=== PATIENT | female | born 1930 | race Caucasian/White ===

== ENCOUNTER → 2016-09-12 | Outpatient (REF) | payer MEDICARE, BC ==
[~2016-09-12] MED LIST: /RANI15TA OR; ACET-654 PO; ATEN25TA PO; BENZ200C PO; BETO0.25 OU; CARV6.25 PO; COLA100C3 PO; LASI40TA PO; MILKSUS PO; MIRA3350 PO; NORCOTAB PO; PROT1TAB2 PO; SENN8.6T7 PO; SENO8.6T2 PO; TYLE325T5 PO; VALS1TAB49 PO; VITA100041 PO; WARF-20 PO; WARF-58 PO; WARF4TAB28 PO; [UNRECOGNIZED DRUG - CODE] PO; [UNRECOGNIZED DRUG - OTHER] OD; lumigan OU
== END ==
LOC: M LAB REF 17:27
PROVIDERS: ATTEND Internal Medicine
DX: D01.0 Carcinoma in situ of colon (principal)

== ENCOUNTER → 2017-04-17 | Outpatient (REF) | payer MEDICARE, BC ==
[~2017-04-17] MED LIST changes: -ACET-654 PO; +ACET1TAB17 PO; -COLA100C3 PO; +COLA100C5 PO; +COUM6TAB PO; +D32000CA PO; -SENO8.6T2 PO; +SENO8.6T5 PO; +VITA-182 PO; +VITA100067 PO; -[UNRECOGNIZED DRUG - CODE] PO
== END ==
LOC: M LAB REF 16:47
PROVIDERS: ATTEND Nurse Practitioner Adult Health
DX: R31.0 Gross hematuria (principal)

== ENCOUNTER → 2017-08-19 | Outpatient (REF) | payer MEDICARE, BC | LOC: M LAB REF 16:33 | DX: R31.9 Hematuria, unspecified (principal) | CPT/HCPCS: 87086 ==

== ENCOUNTER → 2017-12-10 | Outpatient (REF) | payer MEDICARE, BC ==
[2017-12-14 14:19] LABS: HEPATITIS C QUANTITATION 99350 IU/mL (.)
== END ==
LOC: M LAB REF 12:07
DX: B18.2 Chronic viral hepatitis C (principal)
CPT/HCPCS: 87522

== ENCOUNTER → 2018-03-10 | Outpatient (REF) | payer MEDICARE, BC | LOC: M LAB REF 17:12 | DX: R31.9 Hematuria, unspecified (principal) | CPT/HCPCS: 88108 ==

== ENCOUNTER → 2018-03-17 | Outpatient (REF) | payer MEDICARE, BC | LOC: M LAB REF 13:03 | DX: R31.9 Hematuria, unspecified (principal) | CPT/HCPCS: 88108 ==

== ENCOUNTER → 2018-03-24 | Outpatient (REF) | payer MEDICARE, BC | LOC: M LAB REF 10:07 | DX: R31.9 Hematuria, unspecified (principal) | CPT/HCPCS: 88108 ==

== ENCOUNTER → 2018-04-07 | Outpatient (REF) | payer MEDICARE, BC ==
[~2018-04-07] MED LIST changes: -ACET1TAB17 PO; +ACET1TAB55 PO; -LASI40TA PO; +LASI40TA9 PO; +MILK120011 PO; -MILKSUS PO
[2018-04-07 14:21] LABS: APPEARANCE, URINE CLEAR (CLEAR); BACTERIA, URINE AUTO NEGATIVE (NEGATIVE); BILIRUBIN, URINE AUTO NEGATIVE (NEGATIVE); BLOOD, URINE BLOOD 3+ (NEGATIVE); COLOR, URINE YELLOW (YELLOW); GLUCOSE, URINE (UA) AUTO NEGATIVE (NEGATIVE); KETONE, URINE AUTO NEGATIVE (NEGATIVE); LEUKOCYTE ESTERASE, URINE AUTO 1+ (NEGATIVE); MUCUS, URINE SMALL (NEGATIVE); NITRITE, URINE AUTO NEGATIVE (NEGATIVE); PROTEIN, URINE AUTO 2+ mg/dL (NEGATIVE); RBC, URINE AUTO 150 /HPF (0-3); SPECIFIC GRAVITY URINE AUTO 1.019 (1.002-1.035); SQUAMOUS EPITHELIAL CELL UR AU 0 /HPF (0-6); WBC, URINE AUTO 32 /HPF (0-3)
== END ==
LOC: M SMT 13:19
PROVIDERS: ATTEND Nurse Practitioner Women's Health
DX: R31.0 Gross hematuria (principal)
CPT/HCPCS: 81001; 87086; 88108; G0463

== ENCOUNTER → 2018-04-16 | Outpatient (CLI) | payer MEDICARE, BC ==
[~2018-04-16] MED LIST changes: +ISOVUE-370 76% 100ML VIAL (Q9967) As Ordered ONE
--- NOTE | 2018-04-16 17:23 | REP ---
Clinical: Gross hematuria. Technique: Axial precontrast, contrast enhanced, and delayed images of the abdomen and pelvis using 100 ml Isovue 370 intravenous contrast material with coronal and sagittal re-formations. Findings: A 9 mm obstructing calculus in the left ureteropelvic junction (images [id number]) is identified along with 1.1 cm simple appearing left peripelvic cyst and 1.4 cm simple appearing right posterior cortical cyst. No perinephric stranding. Kidneys demonstrate symmetric enhancement. Small scattered hepatic hypodensities consistent with benign hepatic cysts. Spleen, pancreas, and bilateral adrenal glands are normal. Gallbladder appears distended without obvious biliary ductal dilatation. The enteric system demonstrates presumed moderate fecal stasis without obstruction or obvious acute inflammatory process. Pelvis demonstrates normal bladder and age-appropriate uterus/adnexa. No ascites. No free air. No significant adenopathy. Atherosclerotic changes to the abdominal aorta and vasculature without aneurysm or dissection. Musculoskeletal structures demonstrate degenerative change. Lung bases demonstrate chronic COPD and emphysematous changes with scattered scarring and mild prominence to the descending thoracic aorta measuring 3.4 cm maximal diameter. Impression: 1. 9 mm calculus in the left ureteropelvic junction along with small solitary bilateral renal cysts. No significant hydronephrosis. 2. Few scattered hepatic cysts. 3. Distended gallbladder. 4. Moderate fecal stasis. 5. Mildly prominent descending thoracic aorta measures 3.4 cm maximal diameter. Electronically Signed by Rober Malone MD 04/16/2018 05:15 P
== END ==
LOC: M RAD 16:32
PROVIDERS: ATTEND Nurse Practitioner Women's Health
DX: R31.0 Gross hematuria (principal); N20.1 Calculus of ureter; N28.1 Cyst of kidney, acquired; K76.89 Other specified diseases of liver; K82.8 Other specified diseases of gallbladder; J44.9 Chronic obstructive pulmonary disease, unspecified
CPT/HCPCS: 74178; Q9967

== ENCOUNTER → 2018-05-07 | Outpatient (CLI) | payer MEDICARE, BC ==
[~2018-05-07] MED LIST changes: -ISOVUE-370 76% 100ML VIAL (Q9967) As Ordered ONE
[2018-05-07 09:40] LABS: HEMATOCRIT 33.8 % (36.0-47.0); MEAN CORPUSCULAR HEMOGLOBIN 32.8 pg (27.0-33.0); MEAN CORPUSCULAR HGB CONC 32.5 g/dl (32.0-36.5); MEAN CORPUSCULAR VOLUME 100.9 fl (80.0-96.0); RED BLOOD COUNT 3.35 10^6/uL (4.00-5.40); WHITE BLOOD COUNT 4.2 10^3/uL (4.0-10.0)
[2018-05-07 09:55] LABS: INR 1.57; PROTHROMBIN TIME 19.1 SECONDS (12.1-14.4)
[2018-05-07 09:56] LABS: PARTIAL THROMBOPLASTIN TIME 33.8 SECONDS (25.4-37.6)
--- NOTE | 2018-05-07 10:03 | REP ---
Chest two views HISTORY: Preop Comparison: 05/20/2015 The lungs are clear. There is blunting of the right costophrenic angle due to pleural thickening or a small pleural effusion. The cardiac silhouette is enlarged. The pulmonary vasculature is normal in appearance. The bony structure is intact. A cardiac pacemaker is present. IMPRESSION: 1. There is blunting of the right costophrenic angle due to pleural thickening or small pleural effusion. 2. Cardiomegaly. Electronically Signed by Stephan Glynn MD 05/07/2018 09:55 A
[2018-05-07 10:05] LABS: CALCIUM LEVEL 9.1 MG/DL (8.8-10.2); CREATININE FOR GFR 1.06 MG/DL (0.55-1.30); GLOMERULAR FILTRATION RATE 52.2 (>32); POTASSIUM SERUM 4.4 MEQ/L (3.5-5.1)
[2018-05-07 10:23] LABS: PLATELET COUNT, AUTOMATED 59 10^3/uL (150-450)
--- NOTE | 2018-05-07 22:03 | ECGEPIP ---
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
== END ==
LOC: M LAB 08:40
PROVIDERS: ATTEND Nurse Practitioner Women's Health
DX: Z01.818 Encounter for other preprocedural examination (principal); N20.0 Calculus of kidney

== ENCOUNTER 2018-05-27 08:23 | Day surgery (SDC) | payer MEDICARE, BC ==
[~2018-05-27] VITALS: Ht 162.6 cm; Wt 54.0 kg
[~2018-05-27 08:23] MED LIST changes: +LIDOCAINE 1% MDV 20ML VIAL SQ PRN; +LOSA50TA88 PO; +LR 1,000 ML IV ONE
--- NOTE | 2018-05-27 08:25 | REP ---
Clinical: Nephrolithiasis. Technique: Single supine view of the abdomen and pelvis. Findings: 7 mm calculus presumed to be within the lower pole left kidney. Further evaluation of the urinary tract system is limited. Bowel gas pattern is nonspecific. Skeletal structures demonstrate chronic levoconvex scoliosis, osteopenia and degenerative changes. Impression: 1. Suspected 7 mm nonobstructing calculus in the lower pole left kidney. Electronically Signed by Rober Malone MD 05/27/2018 08:16 A
[2018-05-27] MEDS ORDERED: MIDAZOLAM INJ 2 MG/2 ML VIAL (J2250) As Ordered ONE (09:50)
[2018-05-27] MEDS ORDERED: LIDOCAINE 2% INJ 100 MG/5 ML SDV (FOR ANES.) As Ordered ONE (09:50)
[2018-05-27] MEDS ORDERED: PROPOFOL 200 MG/20 ML VIAL As Ordered ONE (09:50)
[2018-05-27] MEDS ORDERED: fentaNYL 100 MCG/2 ML INJECTION (J3010) As Ordered ONE (09:50)
[2018-05-27 09:51] LABS: INR 1.28; PROTHROMBIN TIME 16.2 SECONDS (12.1-14.4)
[2018-05-27] MEDS ORDERED: oxyCODONE 5MG TAB PO PRN (11:15)
[2018-05-27] MEDS ORDERED: ACETAMINOPHEN 325 MG TAB PO PRN (11:15)
[2018-05-27 12:15] VITALS: BP 158/72
--- NOTE | 2018-05-27 12:31 | RO ---
DATE OF PROCEDURE: 05/27/2018 PREPROCEDURE DIAGNOSIS: Left kidney stone. POSTPROCEDURE DIAGNOSIS: Left kidney stone. PROCEDURE: Left extracorporal shockwave lithotripsy. SURGEON: Dr. Tavo Richards. ORTHOPEDIC NURSE: None. ANESTHESIA: Monitored anesthesia care (MAC). OPERATIVE INDICATION: This is an 87-year-old female who was found to have an 8- 9 mm left ureteropelvic junction stone on recent imaging. She was brought to the operating room today for the above listed procedure. DESCRIPTION OF PROCEDURE: The patient was brought to the operating room and MAC anesthesia was administered. Prophylactic antibiotics were infused. She was then placed in supine position in preparation for left-sided extracorporal shockwave lithotripsy. Fluoroscopy was utilized to monitor stone position and fragmentation throughout the procedure. Shockwaves were delivered to the left-sided kidney stone ungated. There were no arrhythmias. After 2500 shocks the procedure was concluded. The patient was then awakened from anesthesia and transported to the recovery room in stable condition. ESTIMATED BLOOD LOSS: 0 mL COMPLICATIONS: None. SPECIMENS: None. PLAN: Patient will followup in the clinic in approximately 4 weeks with imaging prior to test for residual stone burden. KISHA
== END 2018-05-27 12:35 | disposition home or self-care (01) ==
LOC: M SDC 08:23
PROVIDERS: ATTEND Urology
DX: N20.0 Calculus of kidney (principal); I48.2 Chronic atrial fibrillation; I13.0 Hypertensive heart and chronic kidney disease with heart failure and stage 1 through stage 4 chronic kidney disease, or unspecified chronic kidney disease; I50.42 Chronic combined systolic (congestive) and diastolic (congestive) heart failure; N18.3 Chronic kidney disease, stage 3 (moderate); D63.1 Anemia in chronic kidney disease; D69.6 Thrombocytopenia, unspecified; R07.9 Chest pain, unspecified; I25.2 Old myocardial infarction; M12.9 Arthropathy, unspecified; M91.0 Juvenile osteochondrosis of pelvis; F41.9 Anxiety disorder, unspecified; K59.00 Constipation, unspecified; Z88.2 Allergy status to sulfonamides; Z88.5 Allergy status to narcotic agent; Z88.8 Allergy status to other drugs, medicaments and biological substances; Z79.899 Other long term (current) drug therapy; Z79.01 Long term (current) use of anticoagulants; Z95.0 Presence of cardiac pacemaker; Z86.19 Personal history of other infectious and parasitic diseases; Z96.653 Presence of artificial knee joint, bilateral; Z98.41 Cataract extraction status, right eye; Z98.42 Cataract extraction status, left eye; Z96.1 Presence of intraocular lens
CPT/HCPCS: 50590; 74018; 85610; J0690; J2250; J3010

== ENCOUNTER → 2018-06-16 | Outpatient (CLI) | payer MEDICARE, BC ==
[~2018-06-16] MED LIST changes: -LIDOCAINE 1% MDV 20ML VIAL SQ PRN; -LR 1,000 ML IV ONE
--- NOTE | 2018-06-16 09:53 | REP ---
KUB one-view History: Left kidney stone Comparison: 05/27/2018 Air is present in small and large intestine. There are no air-fluid levels or dilated loops of intestine. There is no pneumoperitoneum. There is no definite nephrocalcinosis. Degenerative change is present in the lumbar spine. Impression: 1. Nonspecific bowel gas pattern. 2. There is no definite nephrocalcinosis. Electronically Signed by Stephan Glynn MD 06/16/2018 09:44 A
[2018-06-16 14:16] LABS: APPEARANCE, URINE CLEAR (CLEAR); BACTERIA, URINE AUTO NEGATIVE (NEGATIVE); BILIRUBIN, URINE AUTO NEGATIVE (NEGATIVE); BLOOD, URINE BLOOD NEGATIVE (NEGATIVE); COLOR, URINE YELLOW (YELLOW); GLUCOSE, URINE (UA) AUTO NEGATIVE (NEGATIVE); KETONE, URINE AUTO NEGATIVE (NEGATIVE); LEUKOCYTE ESTERASE, URINE AUTO TRACE (NEGATIVE); NITRITE, URINE AUTO NEGATIVE (NEGATIVE); PROTEIN, URINE AUTO NEGATIVE (NEGATIVE); RBC, URINE AUTO 2 /HPF (0-3); SPECIFIC GRAVITY URINE AUTO 1.016 (1.002-1.035); SQUAMOUS EPITHELIAL CELL UR AU 0 /HPF (0-6); WBC, URINE AUTO 3 /HPF (0-3)
== END ==
LOC: M SMT 08:15
PROVIDERS: ATTEND Nurse Practitioner Women's Health
DX: M51.36 Other intervertebral disc degeneration, lumbar region (principal); N20.0 Calculus of kidney

== ENCOUNTER 2019-05-14 23:05 | Observation (INO) | payer MEDICARE, BC ==
[~2019-05-14] VITALS: Ht 162.6 cm; Wt 43.8 kg
[~2019-05-14 23:05] MED LIST changes: -/RANI15TA OR; +HYDR-3715 PO; -NORCOTAB PO; +RANI1TAB17 OR; -VALS1TAB49 PO; +VALS40TA9 PO
[2019-05-15] MEDS ORDERED: BENZONATATE 100 MG CAP PO ONE
[2019-05-15] MEDS ORDERED: IPRATROPIUM 0.5MG/ALBUTEROL 2.5MG INH SOL UD 3ML (DUONEB)(J7620) NEB ONE
[2019-05-15 00:19] LABS: INFLUENZA A AMPLIFICATION NEGATIVE (NEGATIVE); INFLUENZA B AMPLIFICATION NEGATIVE (NEGATIVE)
[2019-05-15 00:41] LABS: BASO % 0.4 % (0.0-1.0); EOS % 0.2 % (0.0-3.0); HEMATOCRIT 35.2 % (36.0-47.0); HEMOGLOBIN 11.2 g/dl (12.0-15.5); LYMPH # 0.7 10^3/uL (1.5-5.0); LYMPH % 13.3 % (24.0-44.0); MEAN CORPUSCULAR HGB CONC 31.8 g/dl (32.0-36.5); MEAN CORPUSCULAR VOLUME 103.8 fl (80.0-96.0); MONO # 0.3 10^3/uL (0.0-0.8); MONO % 5.8 % (0.0-5.0); NEUTROPHILS % 79.9 % (36.0-66.0); RED BLOOD COUNT 3.39 10^6/uL (4.00-5.40)
[2019-05-15 01:00] LABS: CK-MB VALUE MASS < 1.0 NG/ML (<3.6); CPK CREATINE PHOSPHOKINASE 78 U/L (26-192); MB/CK RELATIVE INDEX 1.28 (< OR =4); TROPONIN I < 0.02 NG/ML (< 0.10)
[2019-05-15] MEDS ORDERED: ACETAMINOPHEN 500 MG TAB PO ONE (01:30)
[2019-05-15 01:39] LABS: PLATELET COUNT, AUTOMATED 50 10^3/uL (150-450)
[2019-05-15 01:40] LABS: ERYTHROCYTE SEDIMENTATION RATE 22 mm/hr (0-30)
[2019-05-15 01:48] LABS: APPEARANCE, URINE CLEAR (CLEAR); BACTERIA, URINE AUTO NEGATIVE (NEGATIVE); BILIRUBIN, URINE AUTO NEGATIVE (NEGATIVE); BLOOD, URINE BLOOD 1+ (NEGATIVE); COLOR, URINE YELLOW (YELLOW); GLUCOSE, URINE (UA) AUTO NEGATIVE (NEGATIVE); KETONE, URINE AUTO NEGATIVE (NEGATIVE); LEUKOCYTE ESTERASE, URINE AUTO NEGATIVE (NEGATIVE); MUCUS, URINE SMALL (NEGATIVE); NITRITE, URINE AUTO NEGATIVE (NEGATIVE); PROTEIN, URINE AUTO 1+ mg/dL (NEGATIVE); RBC, URINE AUTO 17 /HPF (0-3); SPECIFIC GRAVITY URINE AUTO 1.018 (1.002-1.035); SQUAMOUS EPITHELIAL CELL UR AU 0 /HPF (0-6); UROBILINOGEN, URINE AUTO 0.2 mg/dL (0.0-2.0); WBC, URINE AUTO 1 /HPF (0-3)
[2019-05-15 01:55] LABS: NT-PRO BNP 6595 PG/ML (<450)
[2019-05-15 03:30] LABS: INR 2.23; PROTHROMBIN TIME 24.5 SECONDS (11.8-14.0)
[2019-05-15] MEDS ORDERED: D3 22000 PO (03:30)
[2019-05-15] MEDS ORDERED: ATEN50TA2 PO (03:30)
[2019-05-15] MEDS ORDERED: PILL CUTTER 1 EACH XX PRN (03:45)
[2019-05-15 04:05] VITALS: BP 134/58
--- NOTE | 2019-05-15 04:07 | HPEPDOC ---
[facility] Medical History & Physical Date of Admission May 15, 2019 Date of Service: May 15, 2019 History and Physical CHIEF COMPLAINT: Not feeling well HISTORY OF PRESENT ILLNESS: This is a 88-year-old female presented today for rigor for 1 day. She is a good historian. She states when she was out doing errands earlier this afternoon (around 3:30pm) she began not to feel well so she went home. At home, she began to experience chills and rigor. She notes that she was unable to get warm even though she tired everything. She attempted to eat a meal but noticed nausea but no vomiting after attempting to have some soup She state she was only able to tolerate a bland toast with butter with no problem. She denied any fevers at home, night sweats, weight loss, hair loss, headache, visual changes, chest pain, shortness of breath, vomiting, diarrhea, abdominal pain, muscle aches, worsening arthritis, or change in mood. She does endorse rhinorrhea and a possible dry cough for the last 2 days. She denies any recent sick contact and because symptoms were not improving she called her daughter, who brought her to the ER for further evaluation. In the ER her vitals showed a fever of 101.3 and a tachycardic rate. Telemetry showed she was in atrial fibrillation and RVR. Physical exam was positive for crackles in the right lung base and chest x-ray showed slight blunting of the right costophrenic angle. Because of the elevated proBNP and the continued fever hospitalist team was then called for admission PAST MEDICAL HISTORY: 1. Atrial fibrillation on anticoagulation 2. Congestive heart failure with preserved ejection fraction 3. Hepatitis C (report secondary to transfusion to [facility] in 1966 after giving to her daughter.) 4. History of cataracts. 5. Thrombocytopenia 6. History of aortic aneurysm 7. Arthritis 8. Status post removal of 2 ribs on the right side (in [place]) HOME MEDICATIONS: Please see below. ALLERGIES: Please see below PAST SURGICAL HISTORY: 1. Bilateral cataract surgery 2. Left knee arthroplasty. 3. Pacemaker placement in 2010 4. Thoracic aneurysm repair 2015 at [facility] with Dr. Fink SOCIAL HISTORY: Lives : Alone, lives independently in [facility] [address], Tobacco use: Denies. ETOH: Rarely, Illicit drug use: Denies, CODE STATUS: DNR/DNI FAMILY HISTORY:Reviewed and noncontributory REVIEW OF SYSTEMS: 10 systems reviewed and negative other than HPI PHYSICAL EXAMINATION: VITAL SIGNS: See below GENERAL: Pleasant 88-year-old female laying in bed awake alert oriented speaking in complete sentences no acute distress HEENT: Atraumatic, normocephalic, bilateral temporal wasting, upper dentures missing, Moist mucous membranes with no JVD, prominent SCM muscles and clavicular head bilaterally. CARDIOVASCULAR: S1-S2, irregularly irregular tachycardic rate at 120 with a systolic murmur at the left 5th intercostal space but no radiation, no rubs or gallops. RESPIRATORY: Clear to auscultation bilaterally, except crackles at the right lung base ABDOMINAL: Bowel sounds present abdomen soft and nontender EXTREMITIES: No clubbing cyanosis 1+ pitting edema bilaterally of the ankles. NEUROLOGICAL: no gross focal deficits appreciated PSYCHOLOGICAL: Appropriate LABORATORY DATA: See below. MICROBIOLOGY: Please see below. IMAGIN05/14/2019 Chest x-ray - official report currently pending. Median sternotomy wires, with left pacemaker in place. Note blunting of the costophrenic angle on the right which is similar to CXR from April 2018. Cardiomegaly. ASSESSMENT & PLAN: This is a 88-year-old female presented for rigor for 1 day. PROBLEMS: 1. Rigor and Fevers - possibly viral URI, possibly 2/2 bacterial, less likely 2/2 CHF exacerbation -In the ER Tmax 101.3, saturating appropriately on room air WITH positive crackles of the right lower base. Chest x-ray shows slight blunting of the right costophrenic angle, which is not new. UA negative, ProBNP elevated at 6595 -Last echocardiogram was in 2014. Left ventricular hypertrophy with preserved systolic function, ejection fraction 60%. -Respiratory panel pending - Ordered CT of the chest to assess his pleural effusion versus consolidation -Can consider repeat echocardiogram pending results of CT chest - [id number], - Will start antibiotics if CT scan findings show evidence of pneumonia, Pro- calcitonin ordered, well continue supportive therapy, 2. Atrial fibrillation w/ RVR possibly exacerbated by problem 1 -EKG in the ER shows atrial fibrillation with RVR -[id number]: 4 -Check INR to make sure therapeutic -Continue with home atenolol 25 mg twice a day and warfarin -Remote Telemetry 3. Chronic Congestive heart failure, suspected diastolic - Last echocardiogram was in 2014. Left ventricular hypertrophy with preserved systolic function, ejection fraction 60% -Continue with home atenolol and Lasix 4. Thrombocytopenia. - Platelets 50 - Stable 5. History of hepatitis C 6. Underweight /malnourished - BMI 19.6 -supplement with ensure enlive DVT PROPHYLAXIS: -Warfarin DISPOSITION: Will place on observation status to [facility] with telemetry. Vital Signs Vital Signs Date Time Temp Pulse Resp B/P (MAP) Pulse Ox O2 Delivery O2 Flow Rate FiO2 05/15/19 03:48 99.7 05/15/19 03:35 88 14 94 Room Air 05/15/19 03:30 119/60 (79) Laboratory Data Labs 24H Laboratory Tests 2 05/14/19 23:17: Influenza Type A (RT-PCR) NEGATIVE, Influenza Type B (RT-PCR) NEGATIVE 05/15/19 00:13: Prothrombin Time 24.5H, Prothromb Time International Ratio 2.23, Lactic Acid Level 1.4 05/15/19 00:14: Immature Granulocyte % (Auto) 0.4, Neutrophils (%) (Auto) 79.9H, Lymphocytes (%) (Auto) 13.3L, Monocytes (%) (Auto) 5.8H, Eosinophils (%) (Auto) 0.2, Basophils (%) (Auto) 0.4, Neutrophils # (Auto) 4.0, Lymphocytes # (Auto) 0.7L, Monocytes # (Auto) 0.3, Eosinophils # (Auto) 0.0, Basophils # (Auto) 0.0, Nucleated Red Blood Cells % (auto) 0.0, Immature Platelet Fraction 5.2, Erythrocyte Sedimentation Rate 22, Total Creatine Kinase 78, Creatine Kinase MB < 1.0, Creatine Kinase MB Relative Index 1.28, Troponin I < 0.02, C-Reactive Protein, Quantitative 0.30, ZV-[id number]-L-Type Natriuretic Peptide 6595H 05/15/19 00:19: POC Glucose (Misc Panel) 131H, POC Sodium (Misc Panel) 138, POC Potassium (Misc Panel) 4.3, POC Chloride (Misc Panel) 100, POC Total CO2 (Misc Panel) 27.0, POC Blood Urea Nitrogen (Misc Panel 24, POC Ionized Calcium (Misc Panel) 4.7, POC Creatinine (Misc Panel) 1.1, POC Hematocrit (Misc Panel) 36.0L 05/15/19 01:28: Urine Color YELLOW, Urine Appearance CLEAR, Urine pH 7.0, Urine Specific [place] 1.018, Urine Protein 1+H, Urine Glucose (Auto)(UA) NEGATIVE, Urine Ketones (Auto) NEGATIVE, Urine Blood 1+H, Urine Nitrite NEGATIVE, Urine Bilirubin NEGATIVE, Urine Urobilinogen 0.2, Urine Leukocyte Esterase (Auto) NEGATIVE, Urine WBC (Auto) 1, Urine RBC (Auto) 17H, Urine Hyaline Casts (Auto) 0, Urine Bacteria (Auto) NEGATIVE, Urine Squamous Epithelial Cells 0, Urine Mucus (Auto) SMALL, Urine Sperm (Auto) CBC/BMP Laboratory Tests 05/15/19 00:14 Microbiology Microbiology 05/15/19 Blood Culture, Received Pending 05/15/19 Blood Culture, Received Pending 05/14/19 Respiratory Virus Panel (PCR) ([facility]) - Final, Complete Respiratory Syncytial Virus Home Medications Scheduled Atenolol (Atenolol) 50 Mg Tablet, 50 MG PO BID Cholecalciferol (Vitamin D3) (Vitamin D3) 2,000 Unit Tablet, 2,000 UNIT PO DAILY TAKES AT NOON WITH LOSARTAN Furosemide (Lasix) 40 Mg Tab, 40 MG PO DAILY Losartan Potassium (Losartan Potassium) 50 Mg Tab, 50 MG PO DAILY TAKES AT NOON Warfarin Sodium (Warfarin Sodium) 3 Mg Tab, 3 MG PO 1XWK TAKES ON THURSDAY Warfarin Sodium (Warfarin Sodium) 3 Mg Tab, 4.5 MG PO 6XWK THURSDAY, THURSDAY, THURSDAY, THURSDAY, THURSDAY AND THURSDAY Scheduled PRN Acetaminophen (Acetaminophen) 325 Mg Tab, 650 MG PO Q4HP PRN for PAIN / FEVER Allergies Coded Allergies: Sulfa (Sulfonamide Antibiotics) (Verified Allergy, Unknown, 05/14/19) chlorpheniramine (Verified Allergy, Unknown, 05/14/19) codeine (Verified Allergy, Unknown, 05/14/19) diphenhydramine (Verified Allergy, Unknown, 05/14/19) dorzolamide (Verified Allergy, Unknown, 05/14/19) guaifenesin (Verified Allergy, Unknown, 05/14/19) timolol (Verified Allergy, Unknown, 05/14/19) A-FIB/CHADSVASC A-FIB History Current/History of A-Fib/PAF?: Yes Current PO Anticoag Therapy: Yes Age/Risk Factor Scoring CHADSVASC: CHADSVASC Response (Comments) Value Age Risk Factor Age >/= 75 years old 2 Gender Risk Factor Female 1 Hx of CHF Yes 1 Total 4 GME ATTESTATION GME ATTESTATION My faculty preceptor for this patient encounter was physically present during the encounter and was fully available. All aspects of the patient interview, examination, medical decision making process, and medical care plan development were reviewed and approved by the faculty preceptor. The faculty preceptor is aware and concurs with the plan as stated in the body of this note and will attest to such by his/her cosignature. ATTENDING NOTE I, Estrada Mcdaniels, have independently examined this patient and performed my own physical exam, as well as reviewed the documentation and edited where necessary. I have discussed in detail with the resident / student the findings and plan of treatment as documented by the resident / student and edited their note. I agree with their findings and treatment plan and have edited their documentation. I will continue to follow the patient during this hospital stay. MYNOR NOEL DO May 15, 2019 04:07 ESTRADA MCDANIELS MD May 15, 2019 05:45
--- NOTE | 2019-05-15 04:12 | REPVR ---
PROCEDURE INFORMATION: Exam: CT Chest Without Contrast Exam date and time: 05/15/2019 2:55 AM Age: 88 years old Clinical indication: Fever and other: Tachycardia; Additional info: Tachycardia, fever and crackle in the base TECHNIQUE: Imaging protocol: Computed tomography of the chest without contrast. 3D rendering: MIP and/or 3D reconstructed images were created by the technologist. Radiation optimization: All CT scans at this facility use at least one of these dose optimization techniques: automated exposure control; mA and/or kV adjustment per patient size (includes targeted exams where dose is matched to clinical indication); or iterative reconstruction. COMPARISON: CR Chest, 2 view PA, Lat 2019-05-15 00:15 FINDINGS: Tubes, catheters and devices: AICD/Pacemaker device is present, and its leads are in appropriate position. Lungs: Right middle lobe infiltrates. Right lower lobe 1.5 cm focal air space opacity or nodule. Scattered mild dural calcifications. Mild peripheral interstitial thickening. Pleural space: Unremarkable. No pneumothorax. No pleural effusion. Heart: Moderate severe cardiac enlargement. Aorta: Aortic repair with density along the periphery of the descending aorta. Mild fusiform aortic enlargement. Lymph nodes: Unremarkable. No enlarged lymph nodes. Bones/joints: Thoracic and lumbar levoconvex curvature. Scattered small vertebral bone islands. Chronic right rib fractures. Soft tissues: Unremarkable. IMPRESSION: 1. Right middle lobe infiltrates. 2. Right lower lobe 1.5 cm focal air space opacity or nodule. COMMENT: As per Fleischner Society guidelines for follow-up and management of pulmonary nodules: Recommend initial follow-up chest CT at 3, 9 and 24 months. Consider contrast enhanced chest CT, PET scan and/or biopsy as clinically warranted. Electronically signed by: Vamsi Day On 05/15/2019 04:12:29 AM
[2019-05-15] MEDS: WARFARIN SOD 3 MG TAB PO SCH ×2 (04:42→20:22)
[2019-05-15 06:00] VITALS: BP 121/64
[2019-05-15 06:21] LABS: HEMATOCRIT 31.6 % (36.0-47.0); HEMOGLOBIN 9.9 g/dl (12.0-15.5); MEAN CORPUSCULAR HEMOGLOBIN 32.8 pg (27.0-33.0); MEAN CORPUSCULAR HGB CONC 31.3 g/dl (32.0-36.5); MEAN CORPUSCULAR VOLUME 104.6 fl (80.0-96.0); RED BLOOD COUNT 3.02 10^6/uL (4.00-5.40); WHITE BLOOD COUNT 4.9 10^3/uL (4.0-10.0)
[2019-05-15] MEDS: cefTRIAXone SOD 1 GM in D5W MINI-BAG PLUS 50 ML IV SCH (06:26)
[2019-05-15 06:42] LABS: INR 2.2; PROTHROMBIN TIME 24.3 SECONDS (11.8-14.0)
[2019-05-15 06:44] LABS: CALCIUM LEVEL 8.7 MG/DL (8.8-10.2); CREATININE FOR GFR 1.25 MG/DL (0.55-1.30); GLOMERULAR FILTRATION RATE 43.1 (>32); MAGNESIUM LEVEL 2.1 MG/DL (1.8-2.4); POTASSIUM SERUM 4.3 MEQ/L (3.5-5.1)
[2019-05-15 07:00] LABS: PLATELET COUNT, AUTOMATED 43 10^3/uL (150-450)
--- NOTE | 2019-05-15 08:28 | REP ---
Chest x-ray: Two views. History: Cough and fever. Comparison study: May 07, 2018. Findings: A bipolar pacemaker is seen in the right heart via the left side. The aorta is tortuous. Prior median sternotomy wires are seen and there is a left atrial appendage clip. Mild cardiomegaly is again observed unchanged. Right hemidiaphragm is slightly elevated and there is blunting of the right lateral pleural angle which is unchanged from the May 07, 2018 prior study consistent with scarring. The lungs overall are hyperinflated. No infiltrate is seen. Pulmonary vasculature is not increased. There is diffuse osteopenia. A levoconvex curve is seen in the lumbar spine. Impression: Cardiomegaly, prior sternotomy with pacemaker. No infiltrate seen. Electronically Signed by Sandip Bains MD 05/15/2019 08:19 A
[2019-05-15] MEDS: FUROSEMIDE 40 MG TAB PO SCH (08:29)
[2019-05-15] MEDS: atenoloL 50 MG TAB PO SCH ×2 (08:29→20:21)
[2019-05-15] MEDS: AZITHROMYCIN INJ 500 MG, VIAL MATE ADAPTER 1 EACH in D5W 250 ML IV SCH (08:29)
[2019-05-15] MEDS: LOSARTAN 50 MG TAB PO SCH (12:39)
[2019-05-15] MEDS: ACETAMINOPHEN TAB 650MG DOSE (2X325MG) PO PRN ×2 (12:39→21:56)
--- NOTE | 2019-05-15 12:53 | ECGEPIP ---
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
--- NOTE | 2019-05-15 13:54 | IPNPDOC ---
Subjective Date Seen The patient was seen on 05/15/19. Subjective Chief Complaint/HPI September is doing ok this morning, no complaints. Assessment /Plan Assessment # RSV pneumonia - stable on RA - short course of abx for empiric treatment of secondary bacterial pneumonia due to CT chest findings - procalcitonin pending # Atrial fibrillation w/ RVR - rate controlled with atenolol - INR therapeutic (2.2) # Chronic Congestive heart failure, suspected diastolic - Continue with home atenolol and Lasix # Chronic Thrombocytopenia - monitor platelet # DVT PROPHYLAXIS: -Warfarin # Dispo: home in am Plan/VTE VTE Prophylaxis Ordered?: No VTE Exclusion Mechanical Proph: Other VTE Exclusion Pharmacological: Other VS, I&O, 24H, Fishbone Vital Signs/I&O Vital Signs Date Time Temp Pulse Resp B/P (MAP) Pulse Ox O2 Delivery O2 Flow Rate FiO2 05/15/19 12:39 131/71 05/15/19 06:00 98.2 71 17 98 Room Air Laboratory Data 24H LABS Laboratory Tests 2 05/14/19 23:17: Influenza Type A (RT-PCR) NEGATIVE, Influenza Type B (RT-PCR) NEGATIVE 05/15/19 00:13: Prothrombin Time 24.5H, Prothromb Time International Ratio 2.23, Lactic Acid Level 1.4 05/15/19 00:14: Immature Granulocyte % (Auto) 0.4, Neutrophils (%) (Auto) 79.9H, Lymphocytes (%) (Auto) 13.3L, Monocytes (%) (Auto) 5.8H, Eosinophils (%) (Auto) 0.2, Basophils (%) (Auto) 0.4, Neutrophils # (Auto) 4.0, Lymphocytes # (Auto) 0.7L, Monocytes # (Auto) 0.3, Eosinophils # (Auto) 0.0, Basophils # (Auto) 0.0, Nucleated Red Blo od Cells % (auto) 0.0, Immature Platelet Fraction 5.2, Erythrocyte Sedimentation Rate 22, Total Creatine Kinase 78, Creatine Kinase MB < 1.0, Creatine Kinase MB Relative Index 1.28, Troponin I < 0.02, C-Reactive Protein, Quantitative 0.30, HN-Haj-C-Type Natriuretic Peptide 6595H 05/15/19 00:19: POC Glucose (Misc Panel) 131H, POC Sodium (Misc Panel) 138, POC Potassium (Misc Panel) 4.3, POC Chloride (Misc Panel) 100, POC Total CO2 (Misc Panel) 27.0, POC Blood Urea Nitrogen (Misc Panel 24, POC Ionized Calcium (Misc Panel) 4.7, POC Creatinine (Misc Panel) 1.1, POC Hematocrit (Misc Panel) 36.0L 05/15/19 01:28: Urine Color YELLOW, Urine Appearance CLEAR, Urine pH 7.0, Urine Specific [place] 1.018, Urine Protein 1+H, Urine Glucose (Auto)(UA) NEGATIVE, Urine Ketones (Auto) NEGATIVE, Urine Blood 1+H, Urine Nitrite NEGATIVE, Urine Bilirubin NEGATIVE, Urine Urobilinogen 0.2, Urine Leukocyte Esterase (Auto) NEGATIVE, Urine WBC (Auto) 1, Urine RBC (Auto) 17H, Urine Hyaline Casts (Auto) 0, Urine Bacteria (Auto) NEGATIVE, Urine Squamous Epithelial Cells 0, Urine Mucus (Auto) SMALL, Urine Sperm (Auto) 05/15/19 05:42: Nucleated Red Blood Cells % (auto) 0.0, Prothrombin Time 24.3H, Prothromb Time International Ratio 2.20, Anion Gap 4L, Glomerular Filtration Rate 43.1, Calcium Level 8.7L, Magnesium Level 2.1 CBC/BMP Laboratory Tests 05/15/19 00:14 05/15/19 05:42 Microbiology Microbiology 05/15/19 Blood Culture, Received Pending 05/15/19 Blood Culture, Received Pending 05/14/19 Respiratory Virus Panel (PCR) ([facility]) - Final, Complete Respiratory Syncytial Virus RAHSAUN CONTRERAS MD May 15, 2019 13:54
[2019-05-15 14:00] VITALS: BP 131/71
[2019-05-15 22:00] VITALS: BP 155/99
[2019-05-16] MEDS: cefTRIAXone SOD 1 GM in D5W MINI-BAG PLUS 50 ML IV SCH (05:32)
[2019-05-16 05:53] LABS: HEMATOCRIT 33.2 % (36.0-47.0); HEMOGLOBIN 10.9 g/dl (12.0-15.5); MEAN CORPUSCULAR HEMOGLOBIN 33.2 pg (27.0-33.0); MEAN CORPUSCULAR HGB CONC 32.8 g/dl (32.0-36.5); MEAN CORPUSCULAR VOLUME 101.2 fl (80.0-96.0); RED BLOOD COUNT 3.28 10^6/uL (4.00-5.40); WHITE BLOOD COUNT 5.4 10^3/uL (4.0-10.0)
[2019-05-16 05:56] LABS: PLATELET COUNT, AUTOMATED 43 10^3/uL (150-450)
[2019-05-16 06:00] VITALS: BP 168/83
[2019-05-16 06:04] LABS: INR 2.13; PROTHROMBIN TIME 23.7 SECONDS (11.8-14.0)
[2019-05-16 06:27] LABS: CALCIUM LEVEL 8.8 MG/DL (8.8-10.2); CREATININE FOR GFR 1.06 MG/DL (0.55-1.30); GLOMERULAR FILTRATION RATE 52.1 (>32); MAGNESIUM LEVEL 2.1 MG/DL (1.8-2.4)
[2019-05-16 08:00] VITALS: BP 159/78
[2019-05-16] MEDS: FUROSEMIDE 40 MG TAB PO SCH (09:39)
[2019-05-16] MEDS: atenoloL 50 MG TAB PO SCH (09:41)
[2019-05-16] MEDS: AZITHROMYCIN INJ 500 MG, VIAL MATE ADAPTER 1 EACH in D5W 250 ML IV SCH (09:42)
[2019-05-16] MEDS ORDERED: CEFU1TAB20 PO (11:14)
[2019-05-16 11:42] VITALS: BP 156/85
[2019-05-16] MEDS: LOSARTAN 50 MG TAB PO SCH (11:42)
--- NOTE | 2019-05-16 11:43 | IPNPDOC ---
Subjective Date Seen The patient was seen on 05/16/19. Subjective Chief Complaint/HPI Feels alot better this morning. Remains on room air, afebrile. PT is recommending home with PT Objective Physical Examination General Exam: Positive: Alert, No Acute Distress Eye Exam: Positive: PERRLA; Negative: Sclera icteric ENT Exam: Positive: Atraumatic Neck Exam: Positive: Supple; Negative: JVD Chest Exam: Positive: Clear to auscultation Heart Exam: Positive: Irregular Rhythm, Normal S1, Normal S2 Telemetry: Positive: No significant arrhythmia Abdomen Exam: Positive: Normal bowel sounds Female Exam: Positive: Nl Ext Genitalia Extremity Exam: Positive: Clubbing Neuro Exam: Positive: Normal Gait, Normal Speech Psych Exam: Positive: Mental status NL Assessment /Plan Assessment # RSV pneumonia - stable on RA - short course of ceftin 250 mg bid x 5 days for empiric treatment of secondary bacterial pneumonia due to CT chest findings - procalcitonin 0.09 # Atrial fibrillation w/ RVR - rate controlled with atenolol - INR therapeutic (2.2) # Chronic Congestive heart failure, suspected diastolic - Continue with home atenolol and Lasix # Chronic Thrombocytopenia - platelet count 43k, no change from yesterday # DVT PROPHYLAXIS: -Warfarin # Dispo: home today Plan/VTE VTE Prophylaxis Ordered?: No VTE Exclusion Mechanical Proph: Other VTE Exclusion Pharmacological: Other VS, I&O, 24H, Fishbone Vital Signs/I&O Vital Signs Date Time Temp Pulse Resp B/P (MAP) Pulse Ox O2 Delivery O2 Flow Rate FiO2 05/16/19 09:41 78 159/78 05/16/19 06:00 98.2 18 93 Room Air I&O- Last 24 Hours up to 6 AM 05/16/19 06:00 Intake Total 885 ml Output Total 1250 ml Balance -365 ml Laboratory Data 24H LABS Laboratory Tests 2 05/16/19 05:17: Nucleated Red Blood Cells % (auto) 0.0, Immature Platelet Fraction 6.2, Prothrombin Time 23.7H, Prothromb Time International Ratio 2.13, Anion Gap 6L, Glomerular Filtration Rate 52.1, Calcium Level 8.8, Magnesium Level 2.1 CBC/BMP Laboratory Tests 05/16/19 05:17 Microbiology Microbiology 05/15/19 Blood Culture - Preliminary, Resulted No growth after 24 hours . All specim... 1/19/20 Blood Culture - Preliminary, Resulted No growth after 24 hours . All specim... 05/14/19 Respiratory Virus Panel (PCR) ([facility]) - Final, Complete Respiratory Syncytial Virus RASHAUN CONTRERAS MD May 16, 2019 11:43
[2019-05-16] MEDS ORDERED: WARFARIN SOD 3 MG TAB PO SCH (21:00)
--- NOTE | 2019-05-18 11:01 | DSES ---
DATE OF ADMISSION: 05/14/2019 DATE OF DISCHARGE: 05/16/2019 DISCHARGE DIAGNOSES: 1. RSV upper respiratory tract infection or possible viral pneumonia. 2. Atrial fibrillation with rapid ventricular rate. 3. Chronic congestive heart failure (CHF). 4. Chronic thrombocytopenia. PROCEDURES PERFORMED: None. CONSULTANTS ON THE CASE: None. DISPOSITION: The patient is discharged to home with home health. DISCHARGE INSTRUCTIONS: The patient is instructed to complete a 5 day course of Ceftin 250 mg twice a day. She is to followup with her primary care provider within a week and is to continue with home physical therapy (PT). IMAGING STUDIES DONE DURING THE PATIENT'S STAY: Chest x-ray showed cardiomegaly, prior sternotomy and pacemaker. No infiltrates seen. CT scan of the chest without contrast that showed right middle lobe infiltrates. LABORATORIES: Respiratory viral panel was positive for RSV. Blood cultures times two were no growth during her hospital stay. White count 5.4, hemoglobin 10.9, hematocrit 32.2, platelet count 43,000. INR 2.1, PT 23.7. Sodium 136, potassium 4, chloride 101, bicarbonate 29, anion gap 6, BUN 27, creatinine 1, glucose 99, calcium 8.8, magnesium 2.1, procalcitonin 0.09. HOSPITAL COURSE: Ms. Barbosa is an 88-year-old woman who had presented to the hospital with primary complaint of not feeling well. She reported that she was having rigors for approximately a day and reported having upper respiratory symptoms of cough and sneezing. She subsequently sought medical attention in the emergency room where she was noted to have a fever of 101.3 and was tachycardic. She has chronic atrial fibrillation with rapid ventricular rate. She was treated with medication to slow down her heart rate. She was found to have a normal white blood cell count. Chest x-ray done in the emergency room was unremarkable. Subsequent CT scan of the chest without contrast was obtained. This did indicate that she had infiltrates. She was admitted to the hospital and was treated with antibiotics for community-acquired pneumonia. Her respiratory viral panel did come back positive for RSV. However, with the findings of infiltrate, as well as an elevated procalcitonin, it is felt that there was a possibility that she could develop secondary bacterial pneumonia and therefore she was empirically continued on Ceftin at the time of discharge. The following day, the patient was doing remarkably better. She was seen by physical therapy (PT) and deemed a candidate for home PT. She was discharged in stable condition. DISCHARGE MEDICATIONS: - Ceftin 250 mg twice a day for 5 days The remainder of her home medications upon admission are unchanged at the time of discharge.
== END 2019-05-16 13:00 | disposition home or self-care (01) ==
LOC: M ED 23:05 → M ED INP 23:06 → ENRESERVDT 05-15 03:31 → ENRESERVTM 05-15 03:31 → M MSPAV 05-15 04:06
PROVIDERS: ADMIT Internal Medicine; ATTEND Internal Medicine
DX: J06.9 Acute upper respiratory infection, unspecified (principal); B97.4 Respiratory syncytial virus as the cause of diseases classified elsewhere; I51.7 Cardiomegaly; I48.20 Chronic atrial fibrillation, unspecified; D69.6 Thrombocytopenia, unspecified; Z95.0 Presence of cardiac pacemaker; Z79.899 Other long term (current) drug therapy; Z79.01 Long term (current) use of anticoagulants; I50.32 Chronic diastolic (congestive) heart failure; R63.6 Underweight; E46 Unspecified protein-calorie malnutrition
CPT/HCPCS: 36415; 71046; 71250; 80047; 80048; 81001; 82550; 82553; 83605; 83735; 83880; 84145; 84484; 85025; 85027; 85049; 85055; 85610; 85652; 86140; 87040; 87486; 87502; 87581; 87633; 87798; 93005; 93041; 94760; 96365; 96366; 96367; 97116; 97161; 97530; 99285; G0378; J0456; J0696

== ENCOUNTER → 2019-09-22 | Outpatient (REF) | payer MEDICARE, BC ==
[~2019-09-22] MED LIST changes: +ATEN50TA2 PO; +CEFU1TAB20 PO; -COUM6TAB PO; +COUM6TAB10 PO; +D3 22000 PO
== END ==
LOC: M LAB REF 16:49
PROVIDERS: ATTEND Registered Nurse
DX: M54.5 Low back pain (principal); R39.9 Unspecified symptoms and signs involving the genitourinary system

== ENCOUNTER → 2020-06-08 | Outpatient (CLI) | payer MEDICARE, BC ==
--- NOTE | 2020-06-08 13:12 | REP ---
INDICATION: EDEMA LT LEG. COMPARISON: None. TECHNIQUE: Left lower extremity duplex venous sonography. FINDINGS: The deep veins are anechoic and fully compressible from the groin to the popliteal fossa in the left lower extremity. Color flow imaging is homogeneous. Spectral Doppler interrogation demonstrates intact respiratory variation in flow and normal manual augmentation of flow. There is no evidence of deep vein thrombosis. IMPRESSION: Negative left lower extremity duplex venous ultrasound. No evidence of deep vein thrombosis. <Electronically signed by Lance Bains > 06/08/20 [id number]
== END ==
LOC: M RAD 12:17
PROVIDERS: ATTEND Internal Medicine
DX: R60.0 Localized edema (principal)

== ENCOUNTER 2020-08-20 13:54 | Observation (INO) | payer MEDICARE, BC ==
[~2020-08-20] VITALS: Ht 162.6 cm; Wt 46.6 kg
--- NOTE | 2020-08-20 14:21 | REP ---
INDICATION: fall/thinners. COMPARISON: Comparison head CT study 09 March 2011.. TECHNIQUE: Helical scanning is acquired and 5 mm axial images re-formatted. Coronal MPR images are provided. FINDINGS: Preliminary digital superintendent maintenance airports radiographs are unremarkable. On bone window settings, axial images demonstrate no acute bony abnormality. Visualized paranasal sinuses are clear. No intraorbital abnormality is seen. On soft tissue window settings, there is generalized volume loss. There is no evidence of acute infarction. No intracranial hemorrhage is seen. No mass or extra-axial fluid collection is seen. No midline shift is observed. IMPRESSION: Generalized volume loss. No acute intracranial abnormality.. <Electronically signed by Lance Bains > 08/20/20 [id number]
--- NOTE | 2020-08-20 14:23 | REP ---
INDICATION: fall/thinners. COMPARISON: None. TECHNIQUE: Helical scanning is acquired and overlapping 2 mm high resolution axial images were generated and reviewed at bone and soft tissue window settings. Coronal and sagittal multiplanar re-formations images are generated. FINDINGS: There is no evidence of cervical spine element fracture. No skull base fracture is seen. Cervical vertebral body heights are preserved. Alignment is normal. Facet joints are normally aligned bilaterally at each cervical level on multiplanar re-formations images. There is no evidence of intraspinal or paraspinal hematoma. No extra vertebral abnormality is seen. There are degenerative disc changes most pronounced at C5-6 and C6-7. The lumbar lordosis is somewhat exaggerated. There are advanced degenerative changes at the articulation between the dens and anterior arch of C1. IMPRESSION: Degenerative spondylosis changes. Exaggerated cervical lordosis. No acute abnormality.. <Electronically signed by Lance Bains > 08/20/20 [id number]
--- NOTE | 2020-08-20 14:49 | REP ---
INDICATION: CVA. COMPARISON: Comparison chest x-ray 15 May 2019. TECHNIQUE: Portable upright AP chest radiograph. FINDINGS: The lungs are symmetrically aerated and free of infiltrate. There is linear fibrosis in the left base. There is moderate to marked cardiomegaly again noted. Median sternotomy wires are noted. A left atrial appendage clamp is noted in place. Bipolar pacemaker is seen in the right heart view of the left side as before. Pulmonary vasculature is cephalized. There is no evidence of pleural effusion or pulmonary edema. There is diffuse osteoporosis.. IMPRESSION: Moderate to marked cardiomegaly with pacemaker. Postoperative changes. Linear fibrosis left base. Cephalization. No evidence of pleural effusion or pulmonary edema.. <Electronically signed by Lance Bains > 08/20/20 [id number]
[2020-08-20] MEDS ORDERED: ISOVUE-370 76% 100ML VIAL As Ordered ONE (14:58)
[2020-08-20 14:59] LABS: BASO % 0.5 % (0.0-1.0); EOS # 0.1 10^3/uL (0.0-0.5); EOS % 2.9 % (0.0-3.0); HEMOGLOBIN 10.4 g/dl (12.0-15.5); LYMPH % 23.5 % (24.0-44.0); MEAN CORPUSCULAR HEMOGLOBIN 33.1 pg (27.0-33.0); MEAN CORPUSCULAR HGB CONC 31.5 g/dl (32.0-36.5); MEAN CORPUSCULAR VOLUME 105.1 fl (80.0-96.0); MONO # 0.5 10^3/uL (0.0-0.8); MONO % 11.7 % (2.0-8.0); NEUTROPHILS # 2.7 10^3/uL (1.5-8.5); NEUTROPHILS % 60.9 % (36.0-66.0); RED BLOOD COUNT 3.14 10^6/uL (4.00-5.40); WHITE BLOOD COUNT 4.4 10^3/uL (4.0-10.0)
[2020-08-20 15:02] LABS: PLATELET COUNT, AUTOMATED 54 10^3/uL (150-450)
[2020-08-20 15:18] LABS: CK-MB VALUE MASS 1.7 NG/ML (<3.6); CPK CREATINE PHOSPHOKINASE 69 U/L (26-192); MB/CK RELATIVE INDEX 2.46 (< OR =4); TROPONIN I < 0.02 NG/ML (< 0.10)
--- NOTE | 2020-08-20 15:48 | REP ---
INDICATION: CVA - Nursing interventions must not delay CT. COMPARISON: Comparison head CT study is from earlier this afternoon.. TECHNIQUE: CT contrast dose: 75 ml of intravenous Isovue 370. CT technique: Helical scanning is acquired. 2 mm axial images are reformatted. Maximal intensity projection and multiplanar re-formation images are generated along with 3-D surface rendered color imaging which is viewed rotational. FINDINGS: The distal vertebral arteries are normal in size and patent. Basilar artery is widely patent. Posterior cerebral and superior cerebellar vessels are unremarkable. The distal internal carotid arteries are normal and symmetric. Anterior and middle cerebral arteries are intact. There is no evidence of jason aneurysm, vessel cut off, or arteriovenous malformation. The dural sinuses are patent and intact. Surface rendered 3D images show no additional abnormality. IMPRESSION: Unremarkable CT angiography of the brain with IV contrast. <Electronically signed by Lance Bains > 08/20/20 [id number]
--- NOTE | 2020-08-20 15:50 | REP ---
INDICATION: CVA - Nursing interventions must not delay CT COMPARISON: None. TECHNIQUE: Contrast enhancement dose is 75 mL of intravenous Isovue 370. Helical scanning is acquired. 2 mm axial images are re-formatted. Coronal and sagittal MPR images are generated. Coronal and sagittal MIP and oblique MPR images are generated. 3D surface rendered images are generated and viewed rotationally. FINDINGS: The great vessel origins are unremarkable. The thoracic aorta appears somewhat ectatic, there is a left-sided pacemaker. The common carotid arteries are unremarkable bilaterally. Vertebral arteries are widely patent and codominant. The carotid bifurcations show no evidence of high-grade stenosis or occlusion. There is minimal calcific plaquing in the carotid bulbs bilaterally. Cervical internal carotid artery segments are patent and unremarkable. Curved MPR images show no additional abnormality. Maximum intensity projection images show no high-grade stenosis or occlusion. The left internal carotid artery is rather tortuous. IMPRESSION: No high-grade stenosis or occlusion. Minimal carotid bulb plaquing bilaterally. <Electronically signed by Lance Bains > 08/20/20 [id number]
[2020-08-20 16:15] LABS: ALBUMIN 3.6 GM/DL (3.2-5.2); ALT/SGPT 64 U/L (12-78); BILIRUBIN,DIRECT 0.3 MG/DL (0.0-0.2); BILIRUBIN,TOTAL 0.4 MG/DL (0.2-1.0); TOTAL PROTEIN 7.1 GM/DL (6.4-8.2)
[2020-08-20 18:25] LABS: FERRITIN 242 NG/ML (8-252); IRON (FE) 85 UG/DL (50-170); TOTAL IRON BINDING CAPACITY 340 UG/DL (250-450)
[2020-08-20] MEDS ORDERED: D31000TA2 PO (18:29)
[2020-08-20] MEDS ORDERED: FURO40TA2 PO (18:29)
--- NOTE | 2020-08-20 18:34 | HPEPDOC ---
General Date of Admission 08/20/20 Date of Service: Aug 20, 2020 Chief Complaint The patient is a 89-year-old female admitted with a reason for visit of Head Injury. Source: Patient, RN/MD History of Present Illness With past medical history of chronic atrial fibrillation on Coumadin, chronic thrombocytopenia, hypertension, hepatitis C, congestive heart failure with preserved EF, Thoracic aortic aneurysm, macular degeneration, glaucoma, sinus node dysfunction, status post placement of 4. [id number] female hit her head in the door of the kitchen cabinet yesterday at around 1:30 PM since then she has been having problem with her vision. She reports that she is able to see some letters when she is reading a line and some letters are fading in and out. . She does say that she has bad macular degeneration on the left eye and she was told that she was almost blind. , However, she claims that her vision was perfect and she could read everything before she hit her head. She thought it was likely concussion, so she didn't come in yesterday. However this morning her visual abnormality persisted so she called her primary care doctor and was instructed to come to ED. Workup in the ED with CT head, CT angiogram of the head, CT angiogram of the neck were negative. Patient cannot get an MRI because of her pacemaker, which is not MRI compatible. Dr. Graf discussed the patient with the Dr. Pardo neurologist crop consultant and he recommended admission for the above. The patient did get the repeat CT scan in 24 hours to make sure she doesn't have any stroke. Patient was admitted to the hospitalist service to rule out stroke Home Medications Scheduled Atenolol (Atenolol) 50 Mg Tablet, 50 MG PO BID, (Reported) Cefuroxime Axetil (Cefuroxime) 250 Mg Tablet, 250 MG PO BID Cholecalciferol (Vitamin D3) (Vitamin D3) 2,000 Unit Tablet, 2,000 UNIT PO DAILY, (Reported) TAKES AT NOON WITH LOSARTAN Furosemide (Lasix) 40 Mg Tab, 40 MG PO DAILY, (Reported) Losartan Potassium (Losartan Potassium) 50 Mg Tab, 50 MG PO DAILY, (Reported) TAKES AT NOON Warfarin Sodium (Warfarin Sodium) 3 Mg Tab, 3 MG PO 1XWK, (Reported) TAKES ON THURSDAY Warfarin Sodium (Warfarin Sodium) 3 Mg Tab, 4.5 MG PO 6XWK, (Reported) THURSDAY, THURSDAY, THURSDAY, THURSDAY, THURSDAY AND THURSDAY Scheduled PRN Acetaminophen (Acetaminophen) 325 Mg Tab, 650 MG PO Q4HP PRN for PAIN / FEVER, (Reported) Allergies Coded Allergies: Sulfa (Sulfonamide Antibiotics) (Verified Allergy, Unknown, 05/14/19) chlorpheniramine (Verified Allergy, Unknown, 05/14/19) codeine (Verified Allergy, Unknown, 05/14/19) diphenhydramine (Verified Allergy, Unknown, 05/14/19) dorzolamide (Verified Allergy, Unknown, 05/14/19) guaifenesin (Verified Allergy, Unknown, 05/14/19) timolol (Verified Allergy, Unknown, 05/14/19) Past Medical History Medical History Chronic Atrial fibrillation on anticoagulation Congestive heart failure with preserved ejection fraction Hepatitis C (report secondary to transfusion to [facility] in 1966 after giving to her daughter.) Chronic Thrombocytopenia Aortic aneurysm s/p Thoracic aneurysm repair 2014 at [facility] with Dr. Fink Arthritis Status post removal of 2 ribs on the right side (in [place]) Bilateral cataract surgery Left knee arthroplasty. Sinus node dysfunction s/p Pacemaker placement in 2010 Varicose veins of the lower extremity Glaucoma Macular degeneration Family History Significant Family History: Heart disease ( ), Hypertension (father ), Other (enlarged liver mother) Social History * Smoker: Denies Alcohol: rarely Drugs: denies A-FIB/CHADSVASC A-FIB History Current/History of A-Fib/PAF?: Yes Current PO Anticoag Therapy: Yes Review of Systems Constitutional: Denies: Chills, Fever, Night Sweats Eyes: Reports: Vision change; Denies: Pain ENT: Denies: Head Aches, Ear Pain, Dysphagia Skin: Denies: Rash, Lesions, Breakdown Pulmonary: Denies: Dyspnea, Cough Cardiovascular: Denies: Chest Pain, Palpitations, Orthopnea, Paroxysmal Noc. Dyspnea Gastrointestinal: Denies: Nausea, Vomiting, Abdominal Pain, Diarrhea Genitourinary: Denies: Dysuria, Frequency, Incontinence, Retention Hematologic: Denies: Bruising, Bleeding Excessively Musculoskeletal: Denies: Neck Pain, Back Pain, Muscle Pain, Spasms Neurological: Denies: Weakness, Numbness, Change in speech, Confusion Physical Examination General Exam: Positive: Alert, Cooperative, No Acute Distress Eye Exam: Positive: PERRLA, Conjunctiva & lids normal, EOMI; Negative: Sclera icteric ENT Exam: Positive: Atraumatic, Mucous membr. moist/pink Neck Exam: Positive: Supple; Negative: JVD, thyromegaly Chest Exam: Positive: Clear to auscultation, Normal air movement Heart Exam: Positive: Rate Normal, Regular Rhythm, Normal S1, Normal S2; Negative: Murmurs, Rubs Abdomen Exam: Positive: Normal bowel sounds, Soft; Negative: Tenderness, Hepatospenomegaly Extremity Exam: Negative: Clubbing, Cyanosis, Edema Skin Exam: Positive: Other skin issue (chronic venous stasis changes) Neuro Exam: Positive: Normal Speech, Strength at 5/5 X4 ext, Normal Tone Vital Signs Vital Signs Date Time Temp Pulse Resp B/P (MAP) Pulse Ox O2 Delivery O2 Flow Rate FiO2 08/20/20 15:24 81 18 96 Room Air 08/20/20 15:15 183/83 (116) 08/20/20 13:55 96.7 Laboratory Data Labs 24H Laboratory Tests 2 08/20/20 14:41: Immature Granulocyte % (Auto) 0.5, Neutrophils (%) (Auto) 60.9, Lymphocytes (%) (Auto) 23.5L, Monocytes (%) (Auto) 11.7H, Eosinophils (%) (Auto) 2.9, Basophils (%) (Auto) 0.5, Neutrophils # (Auto) 2.7, Lymphocytes # (Auto) 1.0L, Monocytes # (Auto) 0.5, Eosinophils # (Auto) 0.1, Basophils # (Auto) 0.0, Nucleated Red Blood Cells % (auto) 0.0, Immature Platelet Fraction 6.0, Activated Partial Thromboplast Time 32.4, Total Bilirubin 0.4, Direct Bilirubin 0.3H, Aspartate Amino Transf (AST/SGOT) 64H, Alanine Aminotransferase (ALT/SGPT) 64, Alkaline Phosphatase 78, Total Creatine Kinase 69, Creatine Kinase MB 1.7, Creatine Kinase MB Relative Index 2.46, Troponin I < 0.02, Total Protein 7.1, Albumin 3.6, Albumin/Globulin Ratio 1.0L 08/20/20 14:42: POC Glucose (Misc Panel) 130H, POC Sodium (Misc Panel) 143, POC Potassium (Misc Panel) 3.6, POC Chloride (Misc Panel) 100, POC Total CO2 (Misc Panel) 33.0H, POC Blood Urea Nitrogen (Misc Panel 29H, POC Ionized Calcium (Misc Panel) 4.9, POC Creatinine (Misc Panel) 1.4H, POC Hematocrit (Misc Panel) 31.0L 08/20/20 14:53: POC Prothrombin Time (Misc) 17.0H, POC INR (Misc) 1.4 CBC/BMP Laboratory Tests 08/20/20 14:41 Assessment/Plan With past medical history of chronic atrial fibrillation on Coumadin, chronic thrombocytopenia, hypertension, hepatitis C, congestive heart failure with pres erved EF, Thoracic aortic aneurysm, macular degeneration, glaucoma, sinus node dysfunction, status post placement of 4. [id number] female hit her head in the door of the kitchen cabinet yesterday at around 1:30 PM since then she has been having problem with her vision. She reports that she is able to see some letters when she is reading a line and some letters are fading in and out. . She does say that she has bad macular degeneration on the left eye and she was told that she was almost blind. , However, she claims that her vision was perfect and she could read everything before she hit her head. She thought it was likely concussion, so she didn't come in yesterday. However this morning her visual abnormality persisted so she called her primary care doctor and was instructed to come to ED. Workup in the ED with CT head, CT angiogram of the head, CT angiogram of the neck were negative. Patient cannot get an MRI because of her pacemaker, which is not MRI compatible. Dr. Graf discussed the patient with the Dr. Pardo neurologist crop consultant and he recommended admission to get a the r epeat CT scan in 24 hours to make sure she doesn't have any stroke. Patient was admitted to the hospitalist service to rule out stroke. Abnormal Vision will rule out stroke Will get repeat CT scan in [address] scan comes back negative, she will need to follow up with her business office representative for evaluation of her vision. Chronic atrial fibrillation Rate controlled Subtherapeutic INR Will change to another oral anticoagulant Hypertension Will continue atenolol CHF with preserved EF Continue Lasix Hepatitis C (report secondary to transfusion to [facility] in 1966 after giving to her daughter.) Normal LFTs Chronic Thrombocytopenia Count at baseline Sinus node dysfunction s/p Pacemaker placement in 2010 Glaucoma/Macular degeneration Follow-up with the business office representative Chronic macrocytic anemia Will check iron profile, vitamin B12 and folate Plan / VTE VTE Prophylaxis Ordered?: Yes KAROLINA CARLTON MD Aug 20, 2020 17:50
--- NOTE | 2020-08-20 20:25 | ECGEPIP ---
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
[2020-08-20 21:24] LABS: RSV AMPLIFICATION NEGATIVE (NEGATIVE)
[2020-08-20] MEDS: atenoloL 50 MG TAB PO SCH (21:26)
[2020-08-20] MEDS: APIXABAN 2.5 MG TAB (ELIQUIS) PO SCH (21:26)
[2020-08-21] VITALS: BP 177/75
[2020-08-21 05:16] LABS: HEMATOCRIT 31.4 % (36.0-47.0); HEMOGLOBIN 9.8 g/dl (12.0-15.5); MEAN CORPUSCULAR HEMOGLOBIN 32.7 pg (27.0-33.0); MEAN CORPUSCULAR HGB CONC 31.2 g/dl (32.0-36.5); MEAN CORPUSCULAR VOLUME 104.7 fl (80.0-96.0)
[2020-08-21 05:23] LABS: PLATELET COUNT, AUTOMATED 55 10^3/uL (150-450)
[2020-08-21 05:37] LABS: CALCIUM LEVEL 8.7 MG/DL (8.8-10.2); CREATININE FOR GFR 0.96 MG/DL (0.55-1.30); GLOMERULAR FILTRATION RATE 58.3 (>32); POTASSIUM SERUM 3.7 MEQ/L (3.5-5.1)
[2020-08-21 06:00] VITALS: BP 140/84
[2020-08-21 07:25] VITALS: BP 146/69
[2020-08-21] MEDS: atenoloL 50 MG TAB PO SCH (08:19)
[2020-08-21] MEDS: APIXABAN 2.5 MG TAB (ELIQUIS) PO SCH (08:20)
[2020-08-21] MEDS ORDERED: FUROSEMIDE 40 MG TAB PO SCH (09:00)
[2020-08-21 09:49] LABS: VITAMIN B12 LEVEL 538 PG/ML (247-911)
[2020-08-21 09:50] LABS: FOLATE > 24.0 NG/ML (>5.4)
[2020-08-21 12:09] VITALS: BP 170/70
--- NOTE | 2020-08-21 12:43 | REP ---
INDICATION: stroke/ blurred vision. COMPARISON: Comparison CT study August 20, 2020. A comparison study is also reviewed from March 09, 2011... TECHNIQUE: Helical scanning is acquired. 5 mm axial images were reformatted. Coronal MPR images were generated. FINDINGS: Bone window settings demonstrate an intact bony calvarium. There is no evidence of skull fracture or incidental bony calvarial lesion. The visualized paranasal sinuses appear clear. No intraorbital abnormality is seen. On soft tissue window setting images; the lateral, third, and fourth ventricles are normal in size and position. Graf-white differentiation pattern is normal above and below the tentorium. There are is no evidence of intracranial hemorrhage. No mass, edema, infarction, or midline shift is seen. No extra-axial fluid collection is appreciated. Moderate generalized volume loss is again noted. Graf-white differentiation pattern is intact. There is no evidence of acute intracranial hemorrhage or infarction. No change from yesterday's head CT study. IMPRESSION: Generalized volume loss and mild small vessel changes again noted. No acute intracranial abnormality.. <Electronically signed by Lance Bains > 08/21/20 [id number]
[2020-08-21] MEDS ORDERED: ELIQ2.5T PO (13:33)
--- NOTE | 2020-08-21 13:40 | IPNPDOC ---
Subjective Date Seen The patient was seen on 08/21/20. Subjective Chief Complaint/HPI Feels good , says vision has cleared a little, she can now see the numbers but letters are still a problem. In a word she sees some of the letters and cant see others. She i able to read sentences but reports often she is guessig the words after seeing some of the letters. No other complaints. Wants to go home. Objective Physical Examination General Exam: Positive: Alert, Cooperative, No Acute Distress Eye Exam: Positive: PERRLA, Conjunctiva & lids normal, EOMI; Negative: Sclera icteric ENT Exam: Positive: Atraumatic, Mucous membr. moist/pink Neck Exam: Positive: Supple; Negative: JVD, thyromegaly Chest Exam: Positive: Clear to auscultation, Normal air movement Heart Exam: Positive: Rate Normal, Regular Rhythm, Normal S1, Normal S2; Negative: Murmurs, Rubs Abdomen Exam: Positive: Normal bowel sounds, Soft; Negative: Tenderness, Hepatospenomegaly Extremity Exam: Negative: Clubbing, Cyanosis, Edema Skin Exam: Positive: Other skin issue (chronic venous stasis changes) Neuro Exam: Positive: Normal Speech, Strength at 5/5 X4 ext, Normal Tone Assessment /Plan Assessment With past medical history of chronic atrial fibrillation on Coumadin, chronic thrombocytopenia, hypertension, hepatitis C, congestive heart failure with preserved EF, Thoracic aortic aneurysm, macular degeneration, glaucoma, sinus node dysfunction, status post placement of 4. [id number] female hit her head in the door of the kitchen cabinet yesterday at around 1:30 PM since then she has been having problem with her vision. She reports that she is able to see some letters when she is reading a line and some letters are fading in and out. . She does say that she has bad macular degeneration on the left eye and she was told that she was almost blind. , However, she claims that her vision was perfect and she could read everything before she hit her head. She t hought it was likely concussion, so she didn't come in yesterday. However this morning her visual abnormality persisted so she called her primary care doctor and was instructed to come to ED. Workup in the ED with CT head, CT angiogram of the head, CT angiogram of the neck were negative. Patient cannot get an MRI because of her pacemaker, which is not MRI compatible. Dr. Graf discussed the patient with the Dr. Pardo neurologist campus receptionist and he recommended admission to get a the repeat CT scan in 24 hours to make sure she doesn't have any stroke. Patient was admitted to the hospitalist service to rule out stroke. Abnormal Vision likely concussion after hitting the head vs eye problem. initial CT head, CTA head and CTA neck negative repeat CT scan in 24 hours no signs of acute stroke. follow up with her regional retail sales manager for evaluation of her vision. Chronic atrial fibrillation Rate controlled Coumadin stopped started on eliquis Hypertension Losartan and atenolol CHF with preserved EF Continue Lasix Hepatitis C (report secondary to transfusion to [facility] in 1966 after giving to her daughter.) Normal LFTs Chronic Thrombocytopenia Count at baseline Sinus node dysfunction s/p Pacemaker placement in 2010 Glaucoma/Macular degeneration Follow-up with the regional retail sales manager Chronic macrocytic anemia iron profile, no iron def. vitamin B12 and folate normal Dispo : Home , follow up with PMD in [address] Ar CALVERT. Plan/VTE VTE Prophylaxis Ordered?: Yes VS, I&O, 24H, Fishbone Vital Signs/I&O Vital Signs Date Time Temp Pulse Resp B/P (MAP) Pulse Ox O2 Delivery O2 Flow Rate FiO2 08/21/20 12:09 98.0 60 18 170/70 (103) 96 Room Air I&O- Last 24 Hours up to 6 AM 08/21/20 06:00 Intake Total 0 ml Balance 0 ml Laboratory Data 24H LABS Laboratory Tests 2 08/20/20 14:41: Immature Granulocyte % (Auto) 0.5, Neutrophils (%) (Auto) 60.9, Lymphocytes (%) (Auto) 23.5L, Monocytes (%) (Auto) 11.7H, Eosinophils (%) (Auto) 2.9, Basophils (%) (Auto) 0.5, Neutrophils # (Auto) 2.7, Lymphocytes # (Auto) 1.0L, Monocytes # (Auto) 0.5, Eosinophils # (Auto) 0.1, Basophils # (Auto) 0.0, Nucleated Red Blood Cells % (auto) 0.0, Immature Platelet Fraction 6.0, Activated Partial Thro mboplast Time 32.4, Iron Level 85, Total Iron Binding Capacity 340, Transferrin % Saturation 25.0, Ferritin 242, Total Bilirubin 0.4, Direct Bilirubin 0.3H, Aspartate Amino Transf (AST/SGOT) 64H, Alanine Aminotransferase (ALT/SGPT) 64, Alkaline Phosphatase 78, Total Creatine Kinase 69, Creatine Kinase MB 1.7, Creatine Kinase MB Relative Index 2.46, Troponin I < 0.02, Total Protein 7.1, Albumin 3.6, Albumin/Globulin Ratio 1.0L, Vitamin B12 Level 538, Folate > 24.0 08/20/20 14:42: POC Glucose (Misc Panel) 130H, POC Sodium (Misc Panel) 143, POC Potassium (Misc Panel) 3.6, POC Chloride (Misc Panel) 100, POC Total CO2 (Misc Panel) 33.0H, POC Blood Urea Nitrogen (Misc Panel 29H, POC Ionized Calcium (Misc Panel) 4.9, POC Creatinine (Misc Panel) 1.4H, POC Hematocrit (Misc Panel) 31.0L 08/20/20 14:53: POC Prothrombin Time (Misc) 17.0H, POC INR (Misc) 1.4 08/20/20 20:15: Coronavirus (COVID-19)(PCR) NEGATIVE, Influenza Type A (RT-PCR) NEGATIVE, Influenza Type B (RT-PCR) NEGATIVE, Respiratory Syncytial Virus (PCR) NEGATIVE 08/21/20 04:42: Nucleated Red Blood Cells % (auto) 0.0, Anion Gap 2L, Glomerular Filtration Rate 58.3, Calcium Level 8.7L CBC/BMP Laboratory Tests 08/20/20 14:41 08/21/20 04:42 KAROLINA CARLTON MD Aug 21, 2020 13:40
[2020-08-21 13:45] VITALS: BP 170/82
[2020-08-21] MEDS ORDERED: LOSARTAN 50MG TABLET PO ONE (14:00)
[2020-08-21 14:09] VITALS: BP 170/82
[2020-08-21] MEDS ORDERED: XARE20TA PO (15:43)
== END 2020-08-21 16:00 | disposition home or self-care (01) ==
LOC: M ED 13:54 → M ED INP 13:55 → ENRESERV 22:44 → M PCU 23:36
PROVIDERS: ADMIT Internal Medicine Nephrology; ATTEND Internal Medicine Nephrology
DX: H53.30 Unspecified disorder of binocular vision (principal); I48.20 Chronic atrial fibrillation, unspecified; Z79.01 Long term (current) use of anticoagulants; D69.6 Thrombocytopenia, unspecified; I11.9 Hypertensive heart disease without heart failure; I50.9 Heart failure, unspecified; B18.2 Chronic viral hepatitis C; I49.5 Sick sinus syndrome; D64.9 Anemia, unspecified; Z79.899 Other long term (current) drug therapy; Z88.2 Allergy status to sulfonamides; Z88.5 Allergy status to narcotic agent; Z88.8 Allergy status to other drugs, medicaments and biological substances; H35.30 Unspecified macular degeneration
CPT/HCPCS: 36415; 70450; 70496; 70498; 71045; 72125; 80047; 80048; 80076; 82550; 82553; 82607; 82728; 82746; 83550; 84484; 85025; 85027; 85049; 85055; 85730; 87631; 93005; 93041; 94760; 99285; G0378; Q9967